=== PATIENT | male | born 1960 | race Caucasian/White ===

== ENCOUNTER 2016-11-15 09:14 | Outpatient (CLI) | payer OTHER ==
[2016-10-13 14:37] VITALS: BP 136/96
[2016-11-15 09:31] LABS: BASOPHILS % 0.3 (0.0-1.5); EOSINOPHILS % 3.5 % (0.0-6.8); LYMPHOCYTES # 1.8 # k/uL (0.6-4.0); MEAN CORPUSCULAR HEMOGLOBIN 30.8 pg (28.0-34.0); MONOCYTES # 0.4 # k/uL (0.0-0.9); MONOCYTES % 6.5 % (0.0-11.0); NEUTROPHILS # 3.4 # k/uL (1.4-7.7)
[2016-11-15 10:01] LABS: eGFR (African) > 60; eGFR (Non-African) > 60
== END 2016-11-15 09:15 ==
LOC: LAB 09:14
PROVIDERS: ATTEND Family Medicine
DX: I10 Essential (primary) hypertension (principal); E78.01 Familial hypercholesterolemia; Z72.51 High risk heterosexual behavior
CPT/HCPCS: 36415; 80053; 80061; 85025; 86703

== ENCOUNTER 2016-12-15 10:06 | Outpatient (CLI) | payer OTHER ==
[2016-10-13 14:37] VITALS: BP 136/96
[2016-12-15 10:22] LABS: APPEARANCE,URINE Clear (CLEAR); COLOR,URINE Yellow (YELLOW); OCCULT BLOOD,URINE Negative (NEGATIVE); UROBILINOGEN URINE 0.2 Eu (0.2-1.0)
--- NOTE | 2016-12-15 14:37 | Diagnostic Imaging Report ---
[facility] [address] [facility] [address] [id number] Report Submission Date: Dec 15, 2016 1:28:20 PM CONTRACT CONSULTANT Patient Study Name: NATASHA BEAL Date: Dec 15, 2016 10:47:43 AM CONTRACT CONSULTANT Modality Type: CR Gender: M Description: SPINE : 60 Institution: [facility] Physician HECTOR NOEMI - OP EXAMINATION: Lumbar spine, three views. HISTORY: Lower back pain, right greater than left. FINDINGS: Slight leftward curvature is seen in the lower lumbar spine. The vertebral body heights and alignments are normal. There is intervertebral disc space narrowing throughout the lumbar spine most significant at L2-L3 and L3-L4 with anterior spurring present at multiple levels. Facet arthropathy is seen in the lower lumbar spine most significant at L4-5. The sacroiliac joints are normal. IMPRESSION: 1. No acute osseous abnormality. 2. Mild levoscoliosis and multilevel mild spondylosis. Electronically signed on Dec 15, 2016 1:28:20 PM CONTRACT CONSULTANT by: Suraj Lee [facility] HEALTHChrist[facility]
== END 2016-12-15 10:07 ==
LOC: LAB 10:06
PROVIDERS: ATTEND Family Medicine
DX: R10.9 Unspecified abdominal pain (principal); M54.5 Low back pain
CPT/HCPCS: 72100; 81002

== ENCOUNTER 2016-12-25 09:40 | Outpatient (CLI) | payer OTHER ==
[2016-10-13 14:37] VITALS: BP 136/96
--- NOTE | 2016-12-25 11:26 | Diagnostic Imaging Report ---
Name: NATASHA BEAL ~~ ~~ : 60 ~~ Acc #: [id number]~ ~ DOS: Dec 25, 2016 9:50:51 AM [employer] ~~ Mod: MR ~~ Desc: MRI L SPINE W/O CONTRAST 2 of 2 NOEMI YOUNG~ [address] [address] ~ ~ ~ ~ Report Submission Date: Dec 25, 2016 10:40:54 AM [employer] Patient ~ Study Name: NATASHA BEAL ~ Date: Dec 25, 2016 9:50:51 AM [employer] ~ Modality Type: MR Gender: M ~ Description: MRI L SPINE W/O CONTRAST : 60 ~ Institution: [facility] Physician: NOEMI YOUNG ~ ~ ~ ~ Lumbar spine magnetic resonance imaging (MRI) ~without contrast.~~~~~~~~~~~~~~~~ ~~~~~~~~~ History: 56/M PATIENT COMPLAINS OF RIGHT SIDES PAIN ALONG BACK AND ABDOMINAL AREA X 3 WEEKS; NO KNOWN INJURY Technique: Multiplanar multi-weighted magnetic resonance imaging of the lumbar spine was performed ~without administration of intravenous gadolinium contrast according to the degenerative disc disease protocol. Findings: Sagittal images: The lumbar spine is in the normal anatomic alignment. Vertebral bodies are of normal height without compression fractures. The bone marrow demonstrates normal signal intensity on all sequences.~The conus medullaris is at the level of L1 and the distal spinal cord signal intensity is normal. Of there is intervertebral disc space narrowing throughout the lumbar spine most severe at L1/L2 and L4/L5. Is also decreased signal intensity within the intervertebral disc space is consistent with disc desiccation. Simple right renal cysts are noted. No soft tissue abnormality is identified. The aorta is normal. L1-L2: The disc is mild posterior disc bulge. There is mild facet arthropathy. There is no neural foraminal narrowing. There is no central canal stenosis. L2-L3: The disc is normal in configuration. There is mild ~facet arthropathy. There is no neural foraminal narrowing. There is no central canal stenosis. L3-L4: The disc mild posterior disc bulge. There is bilateral facet arthropathy. There is slight narrowing of the right neural foramina. There is no central canal stenosis. L4-L5: There is diffuse posterior disc bulge present with prominent bilateral facet arthropathy and hypertrophy the ligamentum flavum resulting in severe central canal stenosis and bilateral foraminal stenosis. L5-S1: The disc is mild posterior disc bulge present. There is bilateral facet arthropathy. There is no neural foraminal narrowing. There is no central canal stenosis. Impression: 1. Multilevel spondylosis most severe at L4/L5 posterior disc bulge, facet arthropathy and hypertrophy of the ligamentum flavum resulting in severe central canal stenosis and bilateral foraminal stenosis. 2. Additional levels of spondylosis as described. ~ Electronically signed on Dec 25, 2016 10:40:54 AM [employer] by: Suraj ROCHE
== END 2016-12-25 09:45 | disposition home or self-care (01) ==
LOC: RAD 09:40
PROVIDERS: ATTEND Family Medicine
DX: M47.816 Spondylosis without myelopathy or radiculopathy, lumbar region (principal); M54.5 Low back pain
CPT/HCPCS: 72148

== ENCOUNTER 2017-02-08 09:37 | Day surgery (SDC) | payer OTHER ==
[2016-10-13 14:37] VITALS: BP 136/96
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
--- NOTE | 2017-02-10 13:47 | Operative Note ---
SURGEON: Norris Garza MD ANESTHESIA: Sedation anesthesia. PREOPERATIVE DIAGNOSIS: Right-sided epistaxis. POSTOPERATIVE DIAGNOSIS: Right-sided epistaxis. PROCEDURE PERFORMED: Cautery and packing of epistaxis on the right side. INDICATIONS FOR PROCEDURE: This 56-year-old man described profuse bleeding. He also has crusting in his nose. He has an evident bleed site that is more in the anterior aspect about a 1.5 cm posterior of the caudal end of the nasal cartilage of the septum. Risks , problems, and complications were gone over with the patient, as he declined to have this done in the office under local anesthetic only. Possibility of a perforated nasal septum, ongoing nosebleeds, and multiple other issues were discussed. This is the patient's choice and he understands the risks associated with it and no guarantee of improvement and the need for additional cautery or other issues. PROCEDURE IN DETAIL: The patient was taken to the operating room where he was given sedation anesthesia and oxygen by mouth. The Loupe magnification was used and 1:100,000 epinephrine and 1% Xylocaine was injected with a 30-gauge needle. He has a large crusted, almost corn-like area, about 1.5 cm posterior to the caudal end of the nasal cartilage of the septum. This was cauterized directly with silver nitrate under Loupe magnification for good control. This is just above a site where the septum that has been in a V-like fashion to the left side causing a spur sticking out on that right side. Just above this is where that hard crusty area was. He also had some hard scabby areas in his nose and at this point in time, dry scabby anterior rhinitis. After cauterizing it, it felt satisfactory and rubbing it several times with Q-tips to see if we would get any additional bleeding. The nose was packed with antibiotic impregnated cotton and as I had shown the patient preoperatively. He was awakened from his sedation anesthesia and taken to the recovery room in satisfactory condition. DISPOSITION: He will follow up in about 2 weeks. I trained and taught the patient how to pack his nose intermittently with antibiotic impregnated cotton in the interval to his upcoming clinic visit. cc: Dr. Sunil ROCHE
== END 2017-02-08 09:40 ==
LOC: OPSURG 09:37
PROVIDERS: ATTEND Otolaryngology
DX: R04.0 Epistaxis (principal)
CPT/HCPCS: 30905; J1100; J2001; J2704; J7120; S1016

== ENCOUNTER 2017-02-22 15:35 | Outpatient (CLI) | payer OTHER ==
[2016-10-13 14:37] VITALS: BP 136/96
--- NOTE | 2017-02-23 14:51 | OP Clinic Progress Note ---
REFERRING PHYSICIAN: Dr. Sunil Tanner REASON FOR VISIT: This 56-year-old man was seen in follow up of a right-sided nasal cautery for epistaxis. He has really had no bleeding in the interval. He since found himself incarcerated. He has not been able to keep cotton balls with an antibiotic in his nostril. There are hard scabs that are eroding into the septum. As yet, there is not a perforation but it is down into the cartilage. I had to peel this out under microscopic control and repack the nose with a triple antibiotic impregnated cotton ball. PLAN: I have written a note to the local [facility] that he should keep cotton in his nostril on a 24/ basis. I will see him back at the next clinic visit, either next week or the week after. cc: Dr. Sunil ROCHE
== END 2017-02-22 15:36 ==
LOC: ENT 15:35
PROVIDERS: ATTEND Otolaryngology
DX: R04.0 Epistaxis (principal)
CPT/HCPCS: 87070; 87186; 99213

== ENCOUNTER 2017-03-01 15:26 | Outpatient (CLI) | payer OTHER ==
[2016-10-13 14:37] VITALS: BP 136/96
--- NOTE | 2017-03-04 09:53 | OP Clinic Progress Note ---
REFERRING PHYSICIAN: Dr. Sunil Tanner REASON FOR VISIT: This 56-year-old man is seen in follow up of a right-sided epistaxis. He has a marked nasal septal deviation. He has tried to keep antibiotic in his nose with cotton as I have shown him pre- and postoperatively. He has not really had any active bleeding since his cautery. The patient still has a large amounts of scabs. He has a hard bony crust on his septum that has contributed to some of the chronic inflammatory and crusty areas in the right septum. Overall, he is improved but still has a way to go. PLAN: I have recommended that he continue with the antibiotic impregnated cotton that he makes up on his own and continue doing that regularly for the next 2 weeks and I will see him back. He has had a little difficult time getting this done on a regular basis, as he has been incarcerated. cc: Dr. Sunil ROCHE
== END 2017-03-01 15:27 ==
LOC: ENT 15:26
PROVIDERS: ATTEND Otolaryngology
DX: Z98.890 Other specified postprocedural states (principal)
CPT/HCPCS: 99213

== ENCOUNTER 2017-03-22 15:50 | Outpatient (CLI) | payer OTHER ==
[2016-10-13 14:37] VITALS: BP 136/96
--- NOTE | 2017-03-23 15:46 | OP Clinic Progress Note ---
REASON FOR VISIT: Tien is seen and he has had a nasal cautery. He has not had any problems with bleeding. However, he had been incarcerated and it has been difficult for him to keep cotton and antibiotic ointment over the bleeding site. Also, a reduced level of understanding and/or cooperation has additionally led to him not keeping cotton with antibiotic ointment over the site and it is starting to create an ulcer down into the cartilage on the right side. Previously several times and again today, I have warned him that eventually it will cause a nasal septal perforation. There is no perforation at all currently. Scabs are somewhat brown. They are cleaned off of the ulcerated area. I packed with antibiotic impregnated cotton ball and emphasized the important nature of keeping this covered 05/06 at this point all the time. I will see him back in about 2 weeks. PLAN: Separately, he has complained of some pressure and discomfort in the left ear with muffling and reduction of hearing. He does not really have fluid, but he has a markedly stiff and retracted eardrum and mild Eustachian tube dysfunction. He suggested that he wanted to talk with Dr. Carter about it and I encouraged him to go ahead and do that. I will see him back anyway in 2 weeks and if there is still an ongoing issue, I will be happy to address it. cc: Dr. Lazaro ROCHE
== END 2017-03-22 15:52 ==
LOC: ENT 15:50
PROVIDERS: ATTEND Otolaryngology
DX: H69.90 Unspecified Eustachian tube disorder, unspecified ear (principal)
CPT/HCPCS: 99214

== ENCOUNTER 2017-03-24 10:28 | Outpatient (CLI) | payer OTHER ==
[2016-10-13 14:37] VITALS: BP 136/96
== END 2017-03-24 10:30 ==
LOC: LAB 10:28
PROVIDERS: ATTEND Family Medicine
DX: N40.0 Benign prostatic hyperplasia without lower urinary tract symptoms (principal)
CPT/HCPCS: 36415; 84153

== ENCOUNTER 2017-04-05 10:01 | Outpatient (CLI) | payer OTHER ==
[2016-10-13 14:37] VITALS: BP 136/96
--- NOTE | 2017-04-05 13:54 | OP Clinic Progress Note ---
REASON FOR VISIT: Tien is seen in follow up of his cautery of his epistaxis. He initially had not kept antibiotic- impregnated cotton in his nose adequately in a large part because he had been incarcerated and it left a scab there. Over the last 2 weeks, he has done a much better job with it and there is no nasal septal perforation. There is no bleeding and the scab has resolved. Separately, he has pressure discomfort in the left ear. It aches quite significantly. His balance is off. He has loud buzzing and ringing and muffled hearing. He has more of a tensor syndrome. With his consent and with his sister acknowledging risks, problems, complications, no guarantee of improvement, and a possible permanent perforated eardrum, I went ahead and made a myringotomy with a patch on that ear. He had markedly improved hearing. Everything was louder and clearer subjectively. His deep neck and ear pain and discomfort had significantly resolved. PLAN: He understands the need for aural hygiene. I will see the patient back in about 2 weeks. He also may need some ear canal cleaning at that time. He was a little touchy with getting that done today. cc: Dr. Sunil ROCHE
== END 2017-04-05 10:02 ==
LOC: ENT 10:01
PROVIDERS: ATTEND Otolaryngology
DX: H92.02 Otalgia, left ear (principal); R04.0 Epistaxis
CPT/HCPCS: 69610; 99213

== ENCOUNTER 2017-05-01 09:45 | Outpatient (CLI) | payer OTHER ==
[2016-10-13 14:37] VITALS: BP 136/96
[2017-05-01 10:09] LABS: BASOPHILS % 0.5 (0.0-1.5); EOSINOPHILS % 2.7 % (0.0-6.8); MEAN CORPUSCULAR HEMOGLOBIN 30.7 pg (28.0-34.0); MEAN CORPUSCULAR VOLUME 94.7 fl (80.0-100.0); MONOCYTES % 3.5 % (0.0-11.0); NEUTROPHILS # 3.6 # k/uL (1.4-7.7)
[2017-05-01 10:30] LABS: BILIRUBIN,DIRECT 0.1 mg/dL (0.0-0.4)
== END 2017-05-01 13:07 ==
LOC: LAB 09:45
PROVIDERS: ATTEND Psychiatry & Neurology Psychiatry
DX: Z79.899 Other long term (current) drug therapy (principal)
CPT/HCPCS: 36415; 80061; 80076; 80164; 83036; 85025

== ENCOUNTER 2017-05-10 14:43 | Outpatient (CLI) | payer OTHER ==
[2016-10-13 14:37] VITALS: BP 136/96
--- NOTE | 2017-05-11 12:04 | OP Clinic Progress Note ---
REASON FOR VISIT: The patient is seen in follow up of his epistaxis. He has had no further epistaxis. It took some work to get the cauterized area cleared up as he was not using antibiotic ointment and cotton very well, but more recently he has. The cautery site looks to be very well healed. There is no significant scar, nor ulceration, nor perforation. Principal complaint today is long-standing left-sided symptoms of Eustachian tube dysfunction. It pops and crackles and it snaps and he has pain and discomfort and muffled hearing. The left eardrum is fairly markedly retracted. It does not have fluid nor infection, but it shows significant retraction, particularly medially. I went over options and choices. The patient is going to [place]. Again, he has had the problem for at least 15 years. I do not believe medications are probably going to be significantly helpful to the patient. He opted to go ahead with placement of a tube in that left ear for both the chronic and acute problems. With phenol anesthesia in the inferior and anterior quadrant with a radial fashion incision after phenol anesthesia, a 0.78 Nicole titanium collar button was placed. The patient had improved hearing and had less general pressure and discomfort in that left ear. PLAN: Aural hygiene was explained. The patient will return in about a month for follow up. cc: Dr. Sunil ROCHE
== END 2017-05-10 14:44 ==
LOC: ENT 14:43
PROVIDERS: ATTEND Otolaryngology
DX: R04.0 Epistaxis (principal)
CPT/HCPCS: 99213

== ENCOUNTER 2017-05-24 14:59 | Outpatient (CLI) | payer SELFPAY ==
[2016-10-13 14:37] VITALS: BP 136/96
--- NOTE | 2017-05-25 12:07 | OP Clinic Progress Note ---
REASON FOR VISIT: This 56-year-old man has been seen and treated for eustachian tube dysfunction on the left side with a tube within the last 2 months. He went to [place] and had much less problems with eustachian tube dysfunction and pressure and imbalance than he has had in the past. He does state that he does not feel like he hears well out of the left ear. With otoscopy, the tube is open, patent, and clear and it is angulated so I can see well into the middle ear. The middle ear mucosa is nice and clean and pink. A tuning fork is midline. This suggests there is not a significant sensorineural hearing loss or major conductive loss on the left side. The right eardrum and ear canal are clear. PLAN: I suggested that he get an audiogram some time in the next couple of weeks. It is difficult to tell exactly the level of the symptoms of his hearing loss but clinically, there is no pathology of the middle ear or the ear canal on that left side. An audiogram some time over the next 2 weeks will be done. He had a fairly minor nosebleed when he was in [place]. He had stopped putting antibiotic ointment and having good nasal hygiene. There is some increased erythema but there is no active bleeding. Again, there is some pasty accumulation in the anterior nostril on that right side. I have asked him to go back and continue using the antibiotic ointment with some cotton in the right side fairly intensively for about a week and then for maybe for 1 or 2 hours a day after that. Patient will follow up with an audiogram and continue his care with Dr. Tanner. cc: Dr. Sunil ROCHE
== END 2017-05-24 15:00 ==
LOC: ENT 14:59
PROVIDERS: ATTEND Otolaryngology
DX: H69.82 Other specified disorders of Eustachian tube, left ear (principal)
CPT/HCPCS: 99214